=== PATIENT | female | born 2005 | race Caucasian/White ===

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

== ENCOUNTER 2023-01-15 21:37 | Emergency (ER) | payer OTHER, SELFPAY ==
[2023-01-15 21:38] VITALS: BP 124/63; PULSE 72; RESP 18; TEMP 36.7; O2SAT 96; BMI 24.7
--- NOTE | 2023-01-15 22:30 | PC.NURSE ---
Checked on patient. No concerns at this time. Updated on wait time
--- NOTE | 2023-01-15 23:18 | PC.NURSE ---
Went to get patient. Called 3 times, but no answer.
[2023-01-15 23:20] VITALS: BP 0/0; PULSE 0; RESP 0; TEMP -17.7; TEMP 0
== END 2023-01-16 00:27 | disposition left against medical advice (07) ==
LOC: ER 01-16 00:27
PROVIDERS: Emergency Provider Emergency Medicine; PCP Emergency Medicine
DX: Z53.21 Procedure and treatment not carried out due to patient leaving prior to being seen by health care provider (principal)
CPT/HCPCS: 99211

== ENCOUNTER → 2023-03-24 16:38 | Outpatient (CLI) | payer OTHER, SELFPAY ==
[2023-03-27 09:48] LABS: Neisseria gonorrhoeae, NAA Negative (Negative)
== END ==
PROVIDERS: Visit Provider Obstetrics & Gynecology
DX: Z11.3 Encounter for screening for infections with a predominantly sexual mode of transmission (principal)
CPT/HCPCS: 87491; 87591

== ENCOUNTER 2024-03-22 22:43 | Emergency (ER) | payer OTHER, SELFPAY ==
--- NOTE | 2024-03-22 11:39 | XR_ITS ---
PROCEDURE INFORMATION: Exam: XR Chest Exam date and time: 03/22/2024 11:39 PM Age: 18 years old Clinical indication: Pain; Chest pressure; Additional info: Chest pain, abd pain and back pain TECHNIQUE: Imaging protocol: Radiologic exam of the chest. Views: 1 view. COMPARISON: No relevant prior studies available. FINDINGS: Lungs: No evidence of acute pulmonary disease or infiltrates Pleural spaces: No large effusion or pneumothorax. Heart/Mediastinum: No evidence of mediastinal widening or cardiac silhouette enlargement; the mediastinum and heart appear within normal limits for contour and size. Bones/joints: No evidence of acute osseous abnormalities within the visualized portions of the thoracic spine and ribs. Osseous structures appear appropriate for patient age. IMPRESSION: No dense parenchymal consolidation, pleural effusion, or pneumothorax. PROCEDURE INFORMATION: Exam: XR Abdomen Exam date and time: 03/22/2024 11:39 PM Age: 18 years old Clinical indication: Pain; Chest pressure; Additional info: Chest pain, abd pain and back pain TECHNIQUE: Imaging protocol: Radiologic exam of the abdomen. Views: 2 Views. Upright and supine views. COMPARISON: No relevant prior studies available. FINDINGS: Gastrointestinal tract: Normal. No bowel dilation. Intraperitoneal space: Normal. No free air. Bones/joints: Unremarkable for age. Other findings: There is an umbilical piercing. IMPRESSION: No acute findings.
--- NOTE | 2024-03-22 22:48 | ECG_ITS ---
APPROVED REPORT Exam: Resting ECG HR:67 bpm ECG Measurements Heart Rate 67 AXES RI 151 P 67 QRSd 90 QRS 82 QT 385 T 59 QTc 400 Conclusion SINUS RHYTHM NORMAL ECG Electronically signed by : ZURI MICHEL, 03/25/2024 23:28:56
[2024-03-22] MEDS: LIDOCAINE 2% VISCOUS SOL 15ML UDC 15 ML PO (23:25)
[2024-03-23 01:00] VITALS: BP 105/66; PULSE 64; RESP 18; TEMP 36.9; O2SAT 99
[2024-03-23 04:54] LABS: D-Dimer 0.31 ug/mL (0.0-0.5)
[2024-03-23 04:55] LABS: Alanine Aminotransferase 22 U/L (12-78); Albumin Level 4.5 g/dl (3.5-5.0); Albumin/Globulin Ratio 1.5 (1.1-1.8); Alkaline Phosphatase 52 U/L (38-126); Anion Gap 10.9 mEq/L (5-15); Aspartate Amino Transferase 34 U/L (14-36); Bilirubin,Total 0.4 mg/dl (0.2-1.3); Blood Urea Nitrogen 11 mg/dl (7-17); Carbon Dioxide 27 mmol/L (22.0-30.0); Chloride 105 mmol/L (98-107); Estimated Glomerular Filt Rate 91 ml/min (>60); GFR (African American) 111 ML/MIN (>60); Glucose 86 mg/dl (74-100); Lipase 137 U/L (23-300); Potassium 3.9 mmoL/L (3.5-5.1); Sodium 139 mmol/L (136-145); Total Protein,Serum 7.5 g/dl (6.3-8.2)
[2024-03-23 04:59] LABS: HCG Qualitative, Serum Negative (Negative)
[2024-03-23 05:47] LABS: Hematocrit 42.9 % (37.0-47.0); Hemoglobin 13.9 g/dL (12.2-16.2); Lymphocytes % 34.1 % (10-50); Mean Corpuscular HGB Conc 32.3 g/dL (31.8-35.4); Mean Corpuscular Hemoglobin 32.4 pg (27.0-31.2); Mean Corpuscular Volume 100.2 fl (81-99); Mean Platelet Volume 8.1 fl (7.4-10.4); Neutrophils % 56.3 % (37.0-80.0); Platelet Count 306 K/mm3 (142-424); Red Blood Count 4.27 M/mm3 (4.20-5.40); Red Cell Distribution Width 12.6 % (11.5-17.5); White Blood Count 8.4 K/mm3 (4.5-13.0)
[2024-03-23 05:48] LABS: Basophils # 0.1 K/mm3 (0-0.2); Basophils % 1.5 % (0.1-2.0); Eosinophils # 0.2 K/mm3 (0.0-0.4); Lymphocytes # 2.9 K/mm3 (0.7-4.5); Monocytes # 0.4 K/mm3 (0.1-1.0); Monocytes % 4.6 % (1.7-9.3); Neutrophils # 4.7 K/mm3 (1.8-7.8)
[2024-03-23 06:15] VITALS: BP 127/79; PULSE 64; RESP 18; TEMP 36.9; O2SAT 99; BMI 24.7
--- NOTE | 2024-03-23 06:22 | ED_ITS ---
Discharge Plan Disposition Patient Disposition: Home, Self-Care Chief Complaint: Chest Pain Prescriptions Prescriptions: No Action No Known Home Medications Referrals Follow up/Referrals: Provider,Referral, MD [Primary Care Provider] - See instructions Clinical Impressions Clinical Impression: Abdominal pain Print Language Print Language: Italian Discharge ED Provider: [facility] General Adult HPI General Chief complaint: Chest Pain Stated complaint: CP Time Seen by Provider: 03/22/24 23:00 Mode of Arrival: Ambulatory Source of Information: Patient Limitations: No Limitations Description of Symptoms (Recalled from ER Triage Doc. by RN): Pt presents with heartburn and chest pain x 3 days History of Present Illness HPI narrative: 18-year-old female without significant past medical history presents presents for multiple complaints.? She reports she has had heartburn and constipation for the last several days.? She reports that she has gotten heartburn once before but it never lasted this long.? She has taken Tylenol ibuprofen and Tums and Pepto at home without improvement.? She reports a spasmy epigastric abdominal pain.? Does not radiate to the right side.? It is worse with breathing.? She is on Nexplanon.? She also reports that she has not had a bowel movement in 3 days which is abnormal for her.? She reports 1 episode of vomiting.? Denies any fever.? Denies any significant urinary symptoms. Related Data Home Medications ?Medication ?Instructions ?Recorded ?Confirmed No Known Home Medications 03/24/23 03/24/23 Allergies Allergy/AdvReac Type Severity Reaction Status Date / Time No Known Allergies Allergy Verified 03/24/23 10:55 [facility] Disclaimer: The information contained in this section may have been updated after the patient was seen, as this information can be updated by other users. Surgical History (Updated 03/24/23 @ 10:55 by LUCY Roger) Hx of tonsillectomy Family History (Updated 03/24/23 @ 10:55 by LUCY Roger) Other No significant family history Social History (Updated 03/24/23 @ 10:56 by LUCY Roger) Smoking Status: Unknown if ever smoked second hand exposure: No alcohol intake: never substance use type: denies use current occupational status: employed Travel in the last 8 weeks: None household members: family housing: house current occupation: student current occupational exposures/hazards: No caffeine: Yes ROS Obtained: Yes All systems reviewed & no additional complaints except as documented Physical Exam General General appearance: alert and in no apparent distress Head Head exam: atraumatic and normocephalic Eye Eye exam: Present normal appearance, PERRL and EOMI ENT ENT exam: Present normal oropharynx and normal external ear exam Neck Neck exam: Present normal inspection and full ROM Chest Chest inspection: Present normal inspection and symmetric chest wall rise; Absent tenderness Respiratory Respiratory exam: Present normal lung sounds bilaterally; Absent respiratory distress Cardiovascular Cardiovascular exam: Present regular rate and normal rhythm Abdominal Exam Abdominal exam: Present soft and tenderness (mild, epigastric); Absent distention or guarding Extremities Exam Extremities exam: Present normal inspection; Absent edema or joint swelling Back Exam Back exam: Present normal inspection; Absent tenderness Neurological Exam Neurological exam: Present alert and oriented X3; Absent motor sensory deficit Psychiatric Psychiatric exam: Present normal affect and normal mood Skin Skin exam: Present warm, dry and normal color Lymphatic Lymphatic Findings: no adenopathy Medical Decision Making Medical Records Medical records reviewed: Yes I reviewed the patient's medical records. Sarkis Inquiry Pt receiving controlled substance: No Sarkis was queried for this patient: No Vital Signs: 03/23/24 06:15 Temperature 98.4 F Temperature Source Oral Pulse Rate [Left] 64 Respiratory Rate 18 Blood Pressure [Right Arm] 127/79 Blood Pressure Mean [Right Arm] 95 Blood Pressure Source [Right Arm] Automatic Cuff Blood Pressure Position [Right Arm] Sitting 02 Sat by Pulse Oximetry 99 Oxygen Delivery Method Room Air Lab Data Lab results reviewed: Yes I reviewed the patient's lab results. Lab Results 03/22/24 23:53: WBC 8.4, RBC 4.27, Hgb 13.9, Hct 42.9, MCV 100.2 H, MCH 32.4 H, MCHC 32.3, RDW 12.6, Plt Count 306, MPV 8.1, Neut % (Auto) 56.3, Lymph % (Auto) 34.1, Sampson % (Auto) 4.6, Eos % (Auto) 2.0, Baso % (Auto) 1.5, Neut # (Auto) 4.7, Lymph # (Auto) 2.9, Sampson # (Auto) 0.4, Eos # (Auto) 0.2, Baso # (Auto) 0.1, D- Dimer 0.31, Sodium 139, Potassium 3.9, Chloride 105, Carbon Dioxide 27, Anion Gap 10.9, BUN 11, Creatinine 0.80, Estimated GFR 91, Est GFR ( Amer) 111, Glucose 86, Calcium 10.0, Total Bilirubin 0.4, AST 34, ALT 22, Alkaline Phosphatase 52, Total Protein 7.5, Albumin 4.5, Globulin 3.0, Albumin/Globulin Ratio 1.5, Lipase 137, Serum HCG, Qual Negative 03/22/24 23:53 03/22/24 23:53 Orders (Tests/Meds): ORDERS Category Date Time Status Complete Blood Count Auto Diff Routine Lab 03/22/24 23:53 Completed Comprehensive Metabolic Panel Routine Lab 03/22/24 23:53 Completed D-Dimer Routine Lab 03/22/24 23:53 Completed HCG Qualitative, Serum Routine Lab 03/22/24 23:53 Completed Lipase Routine Lab 03/22/24 23:53 Completed 12-lead EKG Request [ECG Request] Stat Y 03/23/24 06:20 Ordered Medical Decision Narrative: 18-year-old female that significant past medical history presents for a few days of epigastric pain, 1 episode of vomiting, 3 days of constipation.? Differential diagnose includes not limited to GERD, pancreatitis, gastritis, gastroenteritis, cholecystitis, constipation, pneumonia, PE. Workup ordered including CBC CMP chest x-ray KUB serum , D-dimer (PERC positive), EKG, lipase.? Patient given Pepcid viscous lidocaine, Toradol.? Troponin was not ordered given no significant concern for ACS. Patient does not require heart score. Bedside ultrasound performed by me, gallbladder is normal in size without gallbladder wall thickening, pericholecystic fluid or stones.? Images were not able to be saved. EKG interpreted by me on 03/22/2024 at 2256: Sinus rhythm, ventricular rate of 67, no evidence of ST or T wave changes, no evidence of arrhythmia.? Normal sinus rhythm. On reassessment patient had some improvement in pain after viscous lidocaine and Pepcid. Labs independently interpreted me, normal lipase, normal LFTs, negative test, negative D-dimer. KUB and chest x-ray independently interpreted and show no evidence of pneumonia, does show some right-sided stool in the colon, no evidence of obstruction. Interactive discussion of patient regarding results.? No evidence of emergent pathology at this time.? May be gastritis/GERD or developing gastroenteritis.? Constipation could be playing a role as well.? She was given return precautions and instructions regarding symptomatic care at home.? Patient discharged in stable condition. Procedures Risk/Benefits of Procedure(s) Were Explained: Yes Critical Care Critical Care Time Critical Care Time: No
[2024-03-23] MEDS: FAMOTIDINE 20MG TABLET 20 MG PO (06:25)
--- NOTE | 2024-03-23 06:29 | PC.NURSE ---
computer will not allow change of triage. Pt arrived at 03/22/24 at 2240, discharged at 0100 03/23/24
[2024-03-23] MEDS: KETOROLAC 30MG/ML VIAL 15 MG IV (10:11)
== END 2024-03-23 06:30 | disposition home or self-care (01) ==
PROVIDERS: Emergency Medicine; Emergency Provider Emergency Medicine
DX: R10.13 Epigastric pain (principal); K21.9 Gastro-esophageal reflux disease without esophagitis; K59.00 Constipation, unspecified
CPT/HCPCS: 74021; 80053; 83690; 84703; 85025; 85378; 93005; 96374; 99284; J1885

== ENCOUNTER 2025-01-16 21:14 | Emergency (ER) | payer OTHER, SELFPAY ==
[2025-01-16 21:21] VITALS: BP 136/57; PULSE 71; O2SAT 98
[2025-01-16 21:24] VITALS: BP 136/57; PULSE 69; RESP 16; TEMP 36.6; O2SAT 99; BMI 25.6
--- NOTE | 2025-01-16 21:31 | ED_ITS ---
Discharge Plan Disposition Patient Disposition: Home, Self-Care Condition: Good Prescriptions Prescriptions: New pantoprazole 40 mg tablet,delayed release (DR/EC) 40 mg PO DAILY 28 Days Qty: 28 0RF ondansetron 4 mg tablet,disintegrating 4 mg PO Q6H PRN (Reason: nausea and vomiting) Qty: 14 0RF No Action sulfamethoxazole-trimethoprim [Bactrim DS] 800-160 mg tablet 1 tab PO BID 5 Days Qty: 10 0RF clindamycin HCl [Cleocin HCl] 300 mg capsule 300 mg PO BID 7 Days Qty: 14 0RF Referrals Follow up/Referrals: Guillermo Kohler II, MD [Staff Physician, Gastroenterology] - See instructions Provider,Referral, [Primary Care Provider, Medical] - See instructions Activity Restrictions/Add. Instructions Additional Instructions/Restrictions: Please return to the emergency department with any worsening signs or symptoms, please continue to advance diet as tolerated, please follow-up with GI doctor, please take your antacid medication as prescribed, please take antinausea medicine as prescribed. Clinical Impressions Clinical Impression: Abdominal pain, GERD (gastroesophageal reflux disease) Instructions Patient Instructions: DI for Gastroesophageal Reflux Disease (GERD), DI for Acute Abdominal Pain Print Language Print Language: Brazilian Discharge ED Provider: Dago Azul General Adult HPI <DEBBY Frank - Last Filed: 01/16/25 22:26> General Chief complaint: Abdominal Pain Stated complaint: Pain in right upper abd,diarrhea,indestion Time Seen by Provider: 01/16/25 21:23 Mode of Arrival: Ambulatory Source of Information: Patient Limitations: No Limitations History of Present Illness HPI narrative: 19-year-old female presents the emergency department with right upper quadrant pain, nausea, no vomiting, indigestion , diarrhea for the last 2 days, the pain is constant, patient is been utilizing Pepcid and other antacids, with little no relief or symptomatology, patient was recently seen in the emergency department for similar complaint in 2023, found to have gastritis/GERD, patient denies any fever chills chest pain, shortness of breath, no vomiting, no constipation, no diarrhea, no urinary type symptomatology, last menstrual cycle was 2 weeks ago, no vaginal bleeding no vaginal discharge, patient is a current everyday smoker, (vapes), denies any alcohol or drug use. Patient has no other real relevant past medical history takes no other medications at home. Initial triage vitals are unremarkable. Onset (ago): day(s) Related Data Previous Rx's ?Medication ?Instructions ?Recorded clindamycin HCl 300 mg capsule 300 mg PO BID 7 days #1 4 caps 01/10/25 (Cleocin HCl) sulfamethoxazole 800 1 tab PO BID 5 days #10 tabs 01/10/25 mg-trimethoprim 160 mg tablet (Bactrim DS) ondansetron 4 mg disintegrating 4 mg PO Q6H PRN nausea and 01/16/25 tablet vomiting #14 tabs pantoprazole 40 mg tablet,delayed 40 mg PO DAILY 4 wee ks #28 tabs 01/16/25 release Allergies Allergy/AdvReac Type Severity Reaction Status Date / Time No Known Allergies Allergy Verified 01/04/25 15:16 [facility] <DEBBY Frank - Last Filed: 01/16/25 22:26> [facility] Disclaimer: The information contained in this section may have been updated after the patient was seen, as this information can be updated by other users. Surgical History Hx of tonsillectomy Family History Other No significant family history Social History Smoking Status: Current every day smoker second hand exposure: No alcohol intake: never substance use type: denies use current occupational status: employed Travel in the last 8 weeks?: None household members: family housing: house current occupation: student current occupational exposures/hazards: No caffeine: Yes Have you lived/traveled outside [place] in past 30 days?: No Contact w/someone who lives/traveled outside US past 30 days?: No Exposure to someone with infectious disease in past 14 days?: No Do you have a fever (greater than 100.4 F or 38 C)?: No Have you tested positive for COVID-19?: No Exposed to someone with COVID-19 in past 14 days?: No Do you have a sore throat?: No Do you have a cough?: No Do you have any weakness?: No Do you have any diarrhea?: No Are you experiencing any unusual bleeding?: No Do you have any muscle aches/pain?: No Do you have any abdominal pain?: No Are you experiencing loss of taste or smell?: No Other Medical History Have you received the Flu Vaccine for this season: No Have you received the Pneumonia Vaccine: No <DEBBY Frank - Last Filed: 01/16/25 22:26> ROS Obtained: Yes All systems reviewed & no additional complaints except as documented Physical Exam <DEBBY Frank - Last Filed: 01/16/25 22:26> General General appearance: alert and in no apparent distress Head Head exam: atraumatic and normocephalic Eye Eye exam: Present PERRL and EOMI ENT ENT exam: Present mucous membranes moist Neck Neck exam: Present normal inspection Chest Chest inspection: Present normal inspection and symmetric chest wall rise Respiratory Respiratory exam: Present normal lung sounds bilaterally; Absent respiratory distress Cardiovascular Cardiovascular exam: Present regular rate and normal rhythm Abdominal Exam Abdominal exam: Present soft and tenderness; Absent guarding, rebound, rigidity, organomegaly or tenderness at McBurney's Point Abdominal tenderness: Present RUQ and mild Comment: Mild RUQ pain/midepigastric pain to palpation,, negative Rueda sign. Extremities Exam Extremities exam: Present normal inspection Neurological Exam Neurological exam: Present alert and oriented X3 Psychiatric Psychiatric exam: Present normal affect Skin Skin exam: Present warm and dry Medical Decision Making <DEBBY Frank - Last Filed: 01/16/25 22:26> Medical Records Medical records reviewed: Yes I reviewed the patient's medical records. Screening: Per USPSTF and CDC recommendations, given the prevalence of disease in our region, it is our hospital?s policy to screen for HIV and viral Hepatitis for all patients aged 18 and over and those with ongoing risk factors. Sarkis Inquiry Pt receiving controlled substance: No Sarkis was queried for this patient: No Vital Signs: 01/16/25 21:21 01/16/25 21:24 01/16/25 22:33 Temperature 97.9 F 98.3 F Temperature Source Oral Oral Pulse Rate 71 71 Pulse Rate [Left] 69 Respiratory Rate 16 16 Blood Pressure 136/57 L 136/57 L Blood Pressure [Right Arm] 136/57 L Blood Pressure Mean [Right Arm] 83 02 Sat by Pulse Oximetry 98 99 Oxygen Delivery Method Room Air Room Air Room Air Lab Data Lab results reviewed: Yes I reviewed the patient's lab results. Lab Results 01/16/25 21:20: Urine Color Yellow, Urine Appearance Clear, Urine pH 6.0, Ur Specific [place] 1.025, Urine Protein Negative, Urine Glucose (UA) Negative, Urine Ketones Negative, Urine Blood Negative, Urine Nitrate Negative, Urine Bilirubin Negative, Urine Urobilinogen 0.2, Ur Leukocyte Esterase Negative, Ur Squamous Epith Cells 20-50, Urine Bacteria 1+, Urine HCG, Qual Negative 01/16/25 21:31: WBC 8.5, RBC 4.01 L, Hgb 13.1, Hct 37.0, MCV 92.3, MCH 32.7 H, MCHC 35.4, RDW 11.6, Plt Count 295, MPV 9.5, Neut % (Auto) 58.0, Lymph % (Auto) 29.8, [place] % (Auto) 8.4, Eos % (Auto) 2.2, Baso % (Auto) 1.2, Neut # (Auto) 4.9, Lymph # (Auto) 2.5, [place] # (Auto) 0.7, Eos # (Auto) 0.2, Baso # (Auto) 0.1, Sodium 137, Potassium 4.2, Chloride 105, Carbon Dioxide 27, Anion Gap 9.2, BUN 11, Creatinine 0.90, Estimated Creat Clear 99, Estimated GFR 79, Est GFR ( Amer) 96, Glucose 87, Calcium 9.6, Total Bilirubin 0.3, AST 42 H, ALT 23, Alkaline Phosphatase 54, Total Protein 6.6, Albumin 4.3, Globulin 2.3, A lbumin/Globulin Ratio 1.9 H, Lipase 107, HCV Ab RACHEL w/Rflx PCR Qn Negative, HIV Ag/Ab Combo Qual Negative 01/16/25 21:44: Lactate 1.3 01/16/25 21:31 01/16/25 21:31 Orders (Tests/Meds): ED MEDICATIONS Discontinued Medications Generic Name Dose Route Start Last Admin Trade Name Freq PRN Reason Stop Dose Admin Belladonna Alkaloids 60 ml 01/16/25 21:29 01/16/25 21:35 Belladonna Alkaloids 60 Ml Ml PO 01/16/25 21:30 60 ml ONCE ONE Administration Ondansetron HCl 4 mg 01/16/25 21:29 01/16/25 21:36 Ondansetron 4mg/2ml Vial IV 01/16/25 21:30 4 mg ONCE ONE Administration ORDERS Category Date Time Status POCUS Point of Care (ER Only) Stat Exams 01/16/25 21:30 Completed Complete Blood Count Auto Diff Stat Lab 01/16/25 21:31 Completed Comprehensive Metabolic Panel Stat Lab 01/16/25 21:31 Completed HIV Combo Stat Lab 01/16/25 21:31 Completed Hepatitis C Ab Qual. W/ RFX Stat Lab 01/16/25 21:31 Completed Lactic Acid Stat Lab 01/16/25 21:44 Completed Lipase Stat Lab 01/16/25 21:31 Completed Urinalysis and Microscopic Stat Lab 01/16/25 21:20 Completed Urine , HCG Qual. Stat Lab 01/16/25 21:20 Completed Medical Decision Narrative: 19-year-old female presents emergency department with abdominal pain nausea, diarrhea, differential diagnose include but not limited to cholelithiasis, choledocholithiasis, cholecystitis, gastritis, GERD, ileitis, acute UTI, gastroenteritis among others. I discussed patient case with attending physician Dr. Azul Will obtain basic laboratory studies, lactic acid level, lipase level, urinalysis, urine hCG qualitative, EKG, POCUS of the RUQ, will give GI cocktail 60 mL p.o., 4 mg IV Zofran for nausea. Urinalysis unremarkable Urine hCG is negative CBC unremarkable CMP is noted for minimal AST elevation of 42 lipase in normal limits. Urinalysis microscopic analysis notable for 20-50 squamous cells, 1+ bacteria, negative nitrites, negative hematuria. No lactic acidosis Limited RUQ ultrasound Indication: [-Abdominal pain -Nausea] Identified structures: -Gallbladder -Gallbladder wall -Common bile duct -Liver Findings: Sonographic Rueda sign: negative [Absent] Gallstones: [Absent] Sludge: [Absent] Pericholecystic fluid: [Absent] Maximal GB wall thickness (mm 1.8) [Normal] Gallbladder width (cm2) [Normal] Impression: [-Normal gallbladder] Images [were saved] to permanent archive The study [was] technically adequate CPT 29933-94 This study was performed by me, and I personally interpreted all images/videos. Based on my clinical judgement, these images were [adequate/inadequate] and [did/did not] necessitate further imaging. I discussed the results with the patient family bedside, patient is otherwise remained hemodynamically stable at her time in the emergency department, abdomen is soft, no real tenderness palpation only mild upper tenderness to the mid epigastrium, nonacute abdomen, no fever no chills, no vomiting, no nausea currently, some diarrhea that is waxed and waned, could be IBS versus gastritis/GERD versus lingering gastroenteritis, will prescribe 40 mg p.o. pantoprazole for the next 4 weeks or until GI appointment, will give patient number to call for GI physician, patient was given strict ED return precautions. Also prescribe p.o. Zofran 4 mg as needed for nausea. Recommend advancing diet as tolerated avoiding fatty, spicy foods or carbonated beverages. Patient voiced understanding and agreement with current treatment plan/discharge plan. <Dago Azul MD - Last Filed: 01/17/25 15:38> Vital Signs: 01/16/25 21:21 01/16/25 21:24 01/16/25 22:33 Temperature 97.9 F 98.3 F Temperature Source Oral Oral Pulse Rate 71 71 Pulse Rate [Left] 69 Respiratory Rate 16 16 Blood Pressure 136/57 L 136/57 L Blood Pressure [Right Arm] 136/57 L Blood Pressure Mean [Right Arm] 83 02 Sat by Pulse Oximetry 98 99 Oxygen Delivery Method Room Air Room Air Room Air Lab Data Lab Results 01/16/25 21:20: Urine Color Yellow, Urine Appearance Clear, Urine pH 6.0, Ur Specific [place] 1.025, Urine Protein Negative, Urine Glucose (UA) Negative, Urine Ketones Negative, Urine Blood Negative, Urine Nitrate Negative, Urine Bilirubin Negative, Urine Urobilinogen 0.2, Ur Leukocyte Esterase Negative, Ur Squamous Epith Cells 20-50, Urine Bacteria 1+, Urine HCG, Qual Negative 01/16/25 21:31: WBC 8.5, RBC 4.01 L, Hgb 13.1, Hct 37.0, MCV 92.3, MCH 32.7 H, MCHC 35.4, RDW 11.6, Plt Count 295, MPV 9.5, Neut % (Auto) 58.0, Lymph % (Auto) 29.8, [place] % (Auto) 8.4, Eos % (Auto) 2.2, Baso % (Auto) 1.2, Neut # (Auto) 4.9, Lymph # (Auto) 2.5, [place] # (Auto) 0.7, Eos # (Auto) 0.2, Baso # (Auto) 0.1, Sodium 137, Potassium 4.2, Chloride 105, Carbon Dioxide 27, Anion Gap 9.2, BUN 11, Creatinine 0.90, Estimated Creat Clear 99, Estimated GFR 79, Est GFR ( Amer) 96, Glucose 87, Calcium 9.6, Total Bilirubin 0.3, AST 42 H, ALT 23, Alkaline Phosphatase 54, Total Protein 6.6, Albumin 4.3, Globulin 2.3, A lbumin/Globulin Ratio 1.9 H, Lipase 107, HCV Ab RACHEL w/Rflx PCR Qn Negative, HIV Ag/Ab Combo Qual Negative 01/16/25 21:44: Lactate 1.3 Orders (Tests/Meds): ED MEDICATIONS Discontinued Medications Generic Name Dose Route Start Last Admin Trade Name Freq PRN Reason Stop Dose Admin Belladonna Alkaloids 60 ml 01/16/25 21:29 01/16/25 21:35 Belladonna Alkaloids 60 Ml Ml PO 01/16/25 21:30 60 ml ONCE ONE Administration Ondansetron HCl 4 mg 01/16/25 21:29 01/16/25 21:36 Ondansetron 4mg/2ml Vial IV 01/16/25 21:30 4 mg ONCE ONE Administration ORDERS Category Date Time Status POCUS Point of Care (ER Only) Stat Exams 01/16/25 21:30 Completed Complete Blood Count Auto Diff Stat Lab 01/16/25 21:31 Completed Comprehensive Metabolic Panel Stat Lab 01/16/25 21:31 Completed HIV Combo Stat Lab 01/16/25 21:31 Completed Hepatitis C Ab Qual. W/ RFX Stat Lab 01/16/25 21:31 Completed Lactic Acid Stat Lab 01/16/25 21:44 Completed Lipase Stat Lab 01/16/25 21:31 Completed Urinalysis and Microscopic Stat Lab 01/16/25 21:20 Completed Urine , HCG Qual. Stat Lab 01/16/25 21:20 Completed Medical Decision Narrative: 19-year-old female presents emergency department with abdominal pain nausea, diarrhea, differential diagnose include but not limited to cholelithiasis, choledocholithiasis, cholecystitis, gastritis, GERD, ileitis, acute UTI, gastroenteritis among others. I discussed patient case with attending physician Dr. Azul Will obtain basic laboratory studies, lactic acid level, lipase level, urinalysis, urine hCG qualitative, EKG, POCUS of the RUQ, will give GI cocktail 60 mL p.o., 4 mg IV Zofran for nausea. Urinalysis unremarkable Urine hCG is negative CBC unremarkable CMP is noted for minimal AST elevation of 42 lipase in normal limits. Urinalysis microscopic analysis notable for 20-50 squamous cells, 1+ bacteria, negative nitrites, negative hematuria. No lactic acidosis Limited RUQ ultrasound Indication: [-Abdominal pain -Nausea] Identified structures: -Gallbladder -Gallbladder wall -Common bile duct -Liver Findings: Sonographic Rueda sign: negative [Absent] Gallstones: [Absent] Sludge: [Absent] Pericholecystic fluid: [Absent] Maximal GB wall thickness (mm 1.8) [Normal] Gallbladder width (cm2) [Normal] Impression: [-Normal gallbladder] Images [were saved] to permanent archive The study [was] technically adequate CPT 22081-24 This study was performed by me, and I personally interpreted all images/videos. Based on my clinical judgement, these images were [adequate/inadequate] and [did/did not] necessitate further imaging. I discussed the results with the patient family bedside, patient is otherwise remained hemodynamically stable at her time in the emergency department, abdomen is soft, no real tenderness palpation only mild upper tenderness to the mid epigastrium, nonacute abdomen, no fever no chills, no vomiting, no nausea currently, some diarrhea that is waxed and waned, could be IBS versus gastritis/GERD versus lingering gastroenteritis, will prescribe 40 mg p.o. pantoprazole for the next 4 weeks or until GI appointment, will give patient number to call for GI physician, patient was given strict ED return precautions. Also prescribe p.o. Zofran 4 mg as needed for nausea. Recommend advancing diet as tolerated avoiding fatty, spicy foods or carbonated beverages. Patient voiced understanding and agreement with current treatment plan/discharge plan. I was consulted by the MARIANA, and we discussed the complexity of the problems being addressed. I approved the treatment and management plan for this patient's care in the Emergency Department, thus performing a substantive portion of the medical decision making. Dago Azul MD Critical Care <DEBBY Frank - Last Filed: 01/16/25 22:26> Critical Care Time Critical Care Time: No
[2025-01-16] MEDS: BELLADONNA ALKALOIDS 60 ML ML PO (21:35)
[2025-01-16 21:36] LABS: Microscopic, Urine URINE MICROSCOPIC (MICROSCOPIC)
[2025-01-16] MEDS: ONDANSETRON 4MG/2ML VIAL 4 MG IV (21:36)
--- NOTE | 2025-01-16 21:38 | ECG_ITS ---
APPROVED REPORT Exam: Resting ECG HR:77 bpm ECG Measurements Heart Rate 77 AXES RI 156 P 56 QRSd 87 QRS 86 QT 362 T 52 QTc 394 Conclusion Sinus rhythm Electronically signed by : LOU MCKEON, 01/17/2025 18:21:40
[2025-01-16 21:39] LABS: Appearance,Urine CLEAR (Clear); Bilirubin,Urine Negative (Negative); Blood, Urine Negative (Negative); Color,Urine YELLOW (Yellow); Glucose,Urine (UA) Negative (Negative); Ketones,Urine Negative (Negative); Leukocyte Esterase,Urine Negative (Negative); Nitrate,Urine Negative (Negative); Protein,Urine Negative (Negative); Specific Gravity, Urine 1.025 (1.005-1.030); Urobilinogen,Urine 0.2 EU/dl (0.2)
[2025-01-16 21:41] LABS: Basophils # 0.1 K/mm3 (0-0.2); Basophils % 1.2 % (0.1-2.0); Eosinophils # 0.2 Kmm3 (0.0-0.4); Eosinophils % 2.2 % (0.1-12.0); Hemoglobin 13.1 g/dL (12.2-16.2); Immature Granulocytes # 0.03 10^3uL; Immature Granulocytes % 0.4 %; Lymphocytes # 2.5 K/mm3 (0.7-4.5); Lymphocytes % 29.8 % (10-50); Mean Corpuscular HGB Conc 35.4 g/dL (31.8-35.4); Mean Corpuscular Hemoglobin 32.7 pg (27.0-31.2); Mean Corpuscular Volume 92.3 fl (81-99); Mean Platelet Volume 9.5 fl (7.4-10.4); Monocytes # 0.7 K/mm3 (0.1-1.0); Monocytes % 8.4 % (1.7-9.3); Neutrophils # 4.9 K/mm3 (1.8-7.8); Nucleated Red Blood Cells # 0 10^3/uL; Nucleated Red Blood Cells % 0 %; Platelet Count 295 K/mm3 (142-424); Red Blood Count 4.01 M/mm3 (4.20-5.40); Red Cell Distribution Width 11.6 % (11.5-17.5); Red Cell Distribution Width-SD 39.3 fL; White Blood Count 8.5 K/mm3 (4.8-10.8)
[2025-01-16 21:45] LABS: Urine Pregnancy, HCG Qual. Negative (Negative)
[2025-01-16 21:48] LABS: Bacteria,Urine 1+ /lpf; Squamous Epithelial Cell,Urine 20-50 #/hpf (0-5)
[2025-01-16 21:53] LABS: Albumin Level 4.3 g/dl (3.5-5.0); Chloride 105 mmol/L (98-107); Sodium 137 mmol/L (136-145)
[2025-01-16 21:54] LABS: Potassium 4.2 mmoL/L (3.5-5.1)
[2025-01-16 21:56] LABS: Alanine Aminotransferase 23 U/L (12-78); Anion Gap 9.2 mEq/L (5-15); Aspartate Amino Transferase 42 U/L (14-36); Blood Urea Nitrogen 11 mg/dl (7-17); Carbon Dioxide 27 mmol/L (22.0-30.0); Creatinine Clearance Estimated 99 mL/min (50-200); Estimated Glomerular Filt Rate 79 ml/min (>60); GFR (African American) 96 ML/MIN (>60)
[2025-01-16 21:57] LABS: Albumin/Globulin Ratio 1.9 (1.1-1.8); Alkaline Phosphatase 54 U/L (38-126); Bilirubin,Total 0.3 mg/dl (0.2-1.3); Calcium 9.6 mg/dl (8.4-10.2); Globulin 2.3 g/dL (1.3-3.2); Glucose 87 mg/dl (74-100); Lipase 107 U/L (23-300); Total Protein,Serum 6.6 g/dl (6.3-8.2)
[2025-01-16 22:04] LABS: Lactic Acid 1.3 mmol/L (0.7-2.1)
[2025-01-16 22:33] VITALS: BP 136/57; PULSE 71; RESP 16; TEMP 36.8; O2SAT 100
[2025-01-16 22:39] LABS: HIV Combo NEGATIVE (Negative)
[2025-01-16 22:46] LABS: Hepatitis C Ab Qual. W/ RFX NEGATIVE (Negative)
== END 2025-01-16 22:34 | disposition home or self-care (01) ==
PROVIDERS: Physician Assistant; Emergency Provider Emergency Medicine
DX: R10.11 Right upper quadrant pain (principal); K21.9 Gastro-esophageal reflux disease without esophagitis; F17.290 Nicotine dependence, other tobacco product, uncomplicated; Z11.59 Encounter for screening for other viral diseases; Z11.4 Encounter for screening for human immunodeficiency virus [HIV]
CPT/HCPCS: 80053; 80074; 81001; 81025; 83605; 83690; 85025; 87389; 93005; 96374; 99284; J2405